=== PATIENT | male | born 1970 | race Caucasian/White ===

== ENCOUNTER 2016-11-19 17:29 | Emergency (ER) | payer OTHER ==
[~2016-11-19 17:29] MED LIST: ALPRAZOLAM0.5 MG PO; ASPIRIN81 M2 PO; ATORVASTATIN CA80 MG PO; BAYER CHEWABLE81 MG PO; CARVEDILOL6.25 MG PO; COREG6.25 MG PO; DIFLUCAN100 MG PO; EFFIENT10 MG PO; KETOPROFEN PO; LIPITOR40 MG PO; LISINOPRIL10 MG PO; LORTAB 7.5-3251 EACH PO; OXYCODONE-ACET1 EACH PO; PROMETHAZINE HC25 MG PO; PROTONIX PO; SALAGEN5 M1 PO; UNKNOWN ANTIBIOTIC PO; VIBRAMYCIN100 M1 PO; XANAX1 MG PO
[2016-11-19 17:31] LABS: INFLUENZA A NEG (NEG); INFLUENZA B NEG (NEG)
== END 2016-11-19 18:15 | disposition home or self-care (01) ==
LOC: CFTX 17:29
PROVIDERS: Nurse Practitioner
DX: J11.1 Influenza due to unidentified influenza virus with other respiratory manifestations (principal); I25.2 Old myocardial infarction
CPT/HCPCS: 87804; 99282

== ENCOUNTER 2016-11-25 23:40 | Emergency (ER) | payer OTHER ==
--- NOTE | ~2016-11-25 | CT101 ---
[facility] A Service of [facility] RADIOLOGY TEXT RESULTS PATIENT: ARMINDA SEGURA JR LOCATION: [facility] : 70 UNIT #: [id number] AGE: [address]: Soheila Barraza MD SEX: M ORDER DR: [id number] [facility] [address] [place], [place] [address] [id number] E MR#: [id number] Acc #: [id number] NAME: ARMINDA SEGURA : 1970 SEX: M STUDY DATE/TIME: 11/26/2016 00:55 UNIT: [facility] ROOM: STUDY DESCRIPTION: CT Maxillofacial Area Wo Cont Attending Physician: Soheila Barraza M.D. Ordering Physician: Soheila Barraza M.D. MEDICAL IMAGING REPORT This report is preliminary unless electronic signature is present EXAM CT face 11/26/2016 0055 hours INDICATION Right side jaw swelling radiating up to the ear that started 11/25/2016 in the afternoon. No trauma. History of throat cancer. TECHNIQUE Axial noncontrast images were obtained through the face. Multiplanar reformats were obtained. Comparison is made with neck CT from 03/17/2016. This CT examination was performed with one or more of the following radiation dose reduction techniques: automatic exposure control, adjustment of mA and/or kV according to patient size, and iterative reconstruction. FINDINGS Temporomandibular joints demonstrate normal alignment. There are no facial bone fractures. No erosive changes are seen. There is chronic mucosal thickening in the left maxillary sinus, and there are mucous retention cysts in both maxillary sinuses. There is chronic mucosal thickening in a small right sphenoid sinus. 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 There are some atherosclerotic calcifications in the carotid siphons. There is mild nasal septal deviation to the right. There is a rightward pointing nasal septal spur. Patient has had several dental extractions. There is asymmetry at the level of the larynx better described on the prior neck CT. The study is limited due to technique and the lack of IV contrast. The salivary glands appear grossly normal. The globes appear normal. No fluid collections are seen to suggest an abscess. Floor of the mouth is grossly normal. IMPRESSION 1. No acute findings. There is nothing to suggest a soft tissue abscess or other acute soft tissue abnormality in the face. [facility]. [facility] A Service of [facility] RADIOLOGY TEXT RESULTS PATIENT: ARMINDA SEGURA JR LOCATION: [facility] : 70 UNIT #: [id number] AGE: [address]: Soheila Barraza MD SEX: M ORDER DR: 2. No fracture or malalignment is seen. Both temporomandibular joints demonstrate normal alignment. 3. Chronic changes in the paranasal sinuses as above. No evidence of acute sinus disease. 4. Limited visualization of the larynx again demonstrates soft tissue asymmetry as described on the prior neck CT. Patient has a history of laryngeal cancer. Dictated by... Miguel Treviño Jr., M.D. THIS IS AN ELECTRONICALLY VERIFIED REPORT Miguel Treviño Jr., M.D. at 11/26/2016 10:02 PM RAKAN/alysia TD: 11/26/2016 08:09 JOB #: [id number] MEDICAL IMAGING REPORT COPY
[2016-11-26 00:35] LABS: BASOPHIL# 0.1 X10e3 (0-0.3); BASOPHIL% 0.6 % (0-2.5); EOSINOPHIL# 0.3 X10e3 (0-0.7); EOSINOPHIL% 3.5 % (0.0-7.0); HEMATOCRIT 44.6 % (38.0-50.0); HEMOGLOBIN 14.9 gm/dL (13.0-16.0); LYMPHOCYTE# 0.8 X10e3 (1.0-3.5); LYMPHOCYTE% 8.9 % (17.0-45.0); MEAN CELL VOLUME 88.9 FL (83-96); MEAN CORPUSCULAR HEMOGLOBIN 29.6 PG (28-34); MEAN CORPUSCULAR HGB CONC 33.3 g/dL (30-36); MEAN PLATELET VOLUME 8.9 FL (6.5-11.5); MONOCYTE# 0.8 X10e3 (0-1.0); MONOCYTE% 8.4 % (3.0-12.0); NEUTROPHIL# 7.2 X10e3 (1.5-7.1); NEUTROPHIL% 78.6 % (40-75); PLATELET COUNT 182 X10e3 (140-420); RED BLOOD COUNT 5.02 X10e (3.90-5.60); RED CELL DISTRIBUTION WIDTH 14.5 % (11.0-15.5); WHITE BLOOD COUNT 9.2 X10e3 (4.0-10.5)
[2016-11-26 00:36] LABS: DIFF IND NO
[2016-11-26 00:59] LABS: BLOOD UREA NITROGEN 18 mg/dL (9-23); CALCIUM SERUM 8.8 mg/dL (8.4-10.2); CARBON DIOXIDE 25 mmol/L (22-31); CHLORIDE 106 mmol/L (100-111); GLOM FILT RATE Estimated ABOVE60 mL/min (>60); GLUCOSE FASTING 127 mg/dL (70-110); POTASSIUM 3.8 mmol/L (3.5-5.1); SODIUM 137 mmol/L (135-145)
== END 2016-11-26 02:56 | disposition home or self-care (01) ==
LOC: CED 23:40
PROVIDERS: Emergency Medicine
DX: R22.9 Localized swelling, mass and lump, unspecified (principal); I10 Essential (primary) hypertension
CPT/HCPCS: 70486; 80048; 85025; 96374; 96375; 99284; J1200; J2930

== ENCOUNTER 2017-01-20 05:36 | Emergency (ER) | payer OTHER ==
--- NOTE | ~2017-01-20 | CT4 ---
[facility] A Service of [facility] RADIOLOGY TEXT RESULTS PATIENT: ARMINDA SEGURA JR LOCATION: [facility] : 70 UNIT #: [id number] AGE: [address]: RIGO BENJAMIN APRN SEX: M ORDER DR: [id number] [facility] [address] [place], [place] [address] [id number] E MR#: [id number] Acc #: [id number] NAME: ARMINDA SEGURA JR : 1970 SEX: M STUDY DATE/TIME: 01/20/2017 6:20 UNIT: [facility] ROOM: STUDY DESCRIPTION: CT Abd and Pelv Wo Cont Attending Physician: Rigo Benjamin Aprn Ordering Physician: Rigo Benjamin Aprn Primary Care Physician: Primary Care Physician No MEDICAL IMAGING REPORT This report is preliminary unless electronic signature is present EXAM CT of the abdomen and pelvis without contrast HISTORY Left flank pain for 2 days with hematuria. TECHNIQUE Axial 3.0 mm images were obtained through the abdomen and pelvis without IV or oral contrast. This CT exam was performed with one or more of the following radiation dose reduction techniques: automatic exposure control, adjustment of mA and/or kV according to patient size, and iterative reconstruction. FINDINGS The lung bases are clear. The liver, gallbladder, spleen, pancreas, adrenal glands and right kidney are normal. There is perinephric edema around the left kidney and there is mild left hydronephrosis. The left ureter is slightly dilated all the way down to close to the bladder where there is a distal left ureteral stone measuring 3.0 mm in diameter. The aorta is normal in size and there is no adenopathy. The bowel is normal except for a few sigmoid diverticula. The bladder and prostate gland are normal. The bones are unremarkable. IMPRESSION 3.0 mm distal left ureteral stone causing mild left hydronephrosis, otherwise normal. Dictated by... Eliseo Mosley M.D. THIS IS AN ELECTRONICALLY VERIFIED REPORT [facility] A Service of [facility] RADIOLOGY TEXT RESULTS PATIENT: ARMINDA SEGURA JR LOCATION: [facility] : 70 UNIT #: [id number] AGE: [address]: RIGO BENJAMIN APRN SEX: M ORDER DR: Eliseo Mosley M.D. at 01/20/2017 11:35 AM Anastasia TD: 01/20/2017 10:02 JOB #: [id number] MEDICAL IMAGING REPORT Page 1 of 1 COPY
[2017-01-20 05:40] LABS: URINE APPEARANCE CLEAR; URINE BILIRUBIN NEG (NEG); URINE BLOOD 3+ (NEG); URINE COLOR YELLOW; URINE GLUCOSE NEG (NEG); URINE KETONE NEG (NEG); URINE LEUKOCYTE ESTERASE NEG (NEG); URINE NITRATE NEG (NEG); URINE PROTEIN NEG (NEG); URINE SPECIFIC GRAVITY 1.019 (1.003-1.035); URINE UROBILINOGEN 0.2 MG/DL (NEG)
[2017-01-20 05:42] LABS: URINE BACTERIA AUWI NEG (NEGATIVE); URINE SQUAMOUS EPITHELIAL CELL NONE SEEN /[HPF]; UWBCS1 AUWI 0-2 (0-5)
[2017-01-20 05:46] LABS: CULTURE INDICATED? NO
[2017-01-20 05:59] LABS: ALBUMIN SERUM 4.1 g/dL (3.5-5.0); BILIRUBIN, DIRECT 0.1 mg/dL (0.0-0.2); BILIRUBIN,INDIRECT 0.6 mg/dL (0.0-0.9); BILIRUBIN,TOTAL 0.7 mg/dL (0.2-2.0); BUN/CREATININE RATIO 17.69; CALCIUM SERUM 8.7 mg/dL (8.4-10.2); CREATININE SERUM 1.3 mg/dL (0.6-1.4); GLOM FILT RATE Estimated 65.5 mL/min (>60); POTASSIUM 3.8 mmol/L (3.5-5.1); PROTEIN TOTAL SERUM 6.6 g/dL (6.0-8.3)
== END 2017-01-20 07:19 | disposition home or self-care (01) ==
LOC: CED 05:36
PROVIDERS: Nurse Practitioner Family
DX: N13.2 Hydronephrosis with renal and ureteral calculous obstruction (principal); I10 Essential (primary) hypertension; I25.2 Old myocardial infarction; Z98.890 Other specified postprocedural states; Z79.899 Other long term (current) drug therapy
CPT/HCPCS: 36415; 74176; 80048; 80076; 81003; 96372; 99284; J1885